=== PATIENT | male | born 1995 | race Native Hawaiian/Other Pacific Islander ===

== ENCOUNTER 2018-10-24 08:15 | Outpatient (CLI) | payer BC | END 2018-10-24 23:43 | disposition home or self-care (01) | LOC: RESP 08:15 | DX: R00.0 Tachycardia, unspecified (principal) | CPT/HCPCS: 93005; 93306 ==

== ENCOUNTER 2019-07-21 17:45 | Emergency (ER) | payer BC ==
[~2019-07-21] VITALS: Ht 170.2 cm; Wt 61.2 kg
[2019-07-21 17:45] VITALS: TEMP 98.1
[2019-07-21 18:37] LABS: PLATELET COUNT 200 K/uL (142-355)
[2019-07-21 18:45] LABS: POTASSIUM 4.5 mmol/L (3.6-5.2)
[2019-07-21 20:15] VITALS: BP 110/72
== END 2019-07-21 20:15 | disposition home or self-care (01) ==
LOC: ED 17:45
PROVIDERS: Family Medicine
DX: J45.901 Unspecified asthma with (acute) exacerbation (principal); F17.210 Nicotine dependence, cigarettes, uncomplicated
CPT/HCPCS: 36415; 80053; 85027; 87502; 87635; 87651; 96365; 96375; 99284; J0456; J2930; U0002

== ENCOUNTER 2019-11-21 08:31 | Outpatient (CLI) | payer BC, OTHER | END 2019-11-21 19:29 | disposition home or self-care (01) | LOC: LAB 08:31 | DX: J45.41 Moderate persistent asthma with (acute) exacerbation (principal) ==

== ENCOUNTER 2022-05-24 16:26 | Outpatient (CLI) | payer BC | END 2022-05-24 21:40 | disposition home or self-care (01) | LOC: RAD 16:26 | PROVIDERS: ATTEND Internal Medicine | DX: M70.21 Olecranon bursitis, right elbow (principal) ==